=== PATIENT | male | born 1965 ===

== ENCOUNTER 2018-09-10 09:05 | Emergency (ER) | payer BC ==
[~2018-09-10] VITALS: Ht 170.2 cm; Wt 74.8 kg
[2018-09-10 09:16] VITALS: TEMP 97.9
[2018-09-10 10:52] VITALS: BP 129/88
== END 2018-09-10 10:53 | disposition home or self-care (01) ==
LOC: ED 09:05
DX: S39.012A Strain of muscle, fascia and tendon of lower back, initial encounter (principal)
CPT/HCPCS: 96372; 99283; J1885